=== PATIENT | male | born 1985 | race Caucasian/White ===

== ENCOUNTER 2018-01-19 21:01 | Emergency (ER) | payer OTHER, BC ==
[~2018-01-19] VITALS: Ht 172.7 cm; Wt 74.8 kg
[2018-01-19] MEDS ORDERED: MONTELUKAST SOD10 MG PO (21:13)
[2018-01-19] MEDS ORDERED: VENTOLIN HFA18 GM INH (21:14)
== END 2018-01-19 21:45 | disposition home or self-care (01) ==
LOC: ED 21:01
PROC: 0HQFXZZ Repair Right Hand Skin, External Approach (ICD-10-PCS; principal; 2018-01-19)
DX: S61.212A Laceration without foreign body of right middle finger without damage to nail, initial encounter (principal); Z79.899 Other long term (current) drug therapy; Z23 Encounter for immunization; W45.8XXA Other foreign body or object entering through skin, initial encounter
CPT/HCPCS: 12001; 90471; 90715; 99282